=== PATIENT | male | born 1990 | race Caucasian/White ===

== ENCOUNTER 2017-06-14 06:05 | Day surgery (SDC) | payer BC ==
--- NOTE | 2017-06-13 14:24 | HP ---
DATE OF ADMISSION: 06/14/2017 HISTORY OF PRESENT ILLNESS: The patient is a 26-year-old male with a greater than 6-month history of pain and popping in his left knee. He has had no specific injury. He has difficulty stepping up. He has had persistent symptoms despite rest, restriction of activities, anti-inflammatory medications , and previous cortisone injection. He underwent a right knee arthroscopy in 2005 with some improvem ent, but continues to have problems. PAST MEDICAL HISTORY: The patient is otherwise in good health. CURRENT MEDICATIONS: Normally takes no routine medications. ALLERGIES: He has no known medical allergies. FAMILY HISTORY: Otherwise unremarkable. SOCIAL HISTORY: Otherwise unremarkable. REVIEW OF SYSTEMS: Otherwise unremarkable. PHYSICAL EXAMINATION: GENERAL: Reveals a healthy male. HEENT: Unremarkable. NECK: Supple. CHEST: Clear. HEART: Regular rate and rhythm. ABDOMEN: Soft, nontender. RECTAL/GENITAL: Deferred. EXTREMITIES: Pertinent findings are of the left knee. There is no effusion or erythema. There is n o significant swelling. There is normal alignment. There is no point tenderness. The patella was s ubluxable but nontender. There is full range of motion. Mild patellofemoral crepitus and mild pain with Jose's maneuver. There is no definite instability. Neurovascular exam is intact. LABORATORY AND X-RAY FINDINGS: X-rays of the left knee reveal slight degenerative changes in the pat ellofemoral joint. MRI scan of the left knee from 09/20/2016 reveals a degenerative signal posterior horn of the medial meniscus and a possible healing flap tear, and some degenerative changes of the l ateral patellar facet, and slight lateral subluxation of the patella, but the patella appears reduced on regular x-rays. IMPRESSION: Internal derangement, left knee; possible patellofemoral arthritis; possible meniscal te ar. PLAN: Arthroscopy with partial meniscectomy and/or debridement and shaving. The nature of the surge ry, length of recovery, and potential complications such as infection, loss of motion, incomplete rel ief, thromboembolic phenomenon, neurovascular injury, post-traumatic degenerative arthritis, recurren t tear and need for additional treatment or repeat surgery have been discussed in detail.
[2017-06-13 15:06] VITALS: BMI 21.6
[2017-06-14] MEDS ORDERED: Bupivacaine HCl 0.5%/Epinephrine 1:200,000/PF 30 ml Vial ONE (06:33)
[2017-06-14] MEDS ORDERED: Midazolam HCl 2 mg/2 ml Vial ONE (06:58)
[2017-06-14] MEDS ORDERED: CEFAZOLIN/Water 2 GM/20 ML SYRINGE ONE (06:58)
[2017-06-14] MEDS ORDERED: Fentanyl 100 MCG/2 ML VIAL ONE (07:15)
[2017-06-14] MEDS ORDERED: HYDROmorphone 0.5 MG/0.5 ML SYRINGE ONE (07:15)
--- NOTE | 2017-06-14 10:15 | OP ---
DATE OF PROCEDURE: 06/24/2017 SURGEON: Max Crhistianson M.D. ANESTHESIA: General. PREOPERATIVE DIAGNOSES: Internal derangement, left knee. POSTOPERATIVE DIAGNOSES: Chondromalacia patella and loose body, left knee. PROCEDURE: Arthroscopy left knee with shaving of patella and removal of loose body. OPERATIVE FINDINGS: Examination under anesthesia revealed the knee to be stable. At arthroscopy, th ere was a chondral defect and chondromalacia of the central and medial aspect of the patella down to, but not involving the subchondral bone. It measured approximately 1 x 1 cm. Examination of the med ial compartment was normal. The meniscus was normal. I could not see an injury or evidence of recur rent tear. ACL was intact. Lateral meniscus was intact. There was a cartilaginous loose body measu ring approximately 5 x 8 mm in the lateral compartment, primarily presenting itself underneath the la teral meniscus and the popliteus recess. This apparently was from the patellar defect. I could not see any other source of the loose body. NARRATIVE REPORT: After satisfactory anesthesia was induced, the patient was placed in supine positi on, the patient was placed in a leg ordoñez and prepped and draped in routine manner. Left leg was el evated, exsanguinated with an Esmarch bandage, and the tourniquet inflated to 250 mmHg. [place] arth roscope was introduced into the anterolateral portal, probe through an anteromedial portal, and inflo w and outflow accomplished through the scope using the [place] arthroscopy pump. Arthroscopy was car ried out and the above findings were noted here. All findings were documented with the video printer and hard copies were made. I attempted to remove the loose body with grasping forceps, but I could not quite reach it and therefore elected to remove this with suction of the motorized shaver. I appe ared to have removed it with a shaver, but this happened so fast I could not totally tell that it was suctioned with the motorized shaver. I diligently searched all compartments including the popliteus recess and above and below the lateral meniscus and in the intercondylar notch and I could not see e vidence of the loose body and presumably this was removed with the motorized shaver. The patellar ar ticular surface was debrided with use of basket forceps and motorized shaver of all loose fronds of a rticular surface and the crater smoothed and all segments of articular surface were probed and found to be stable. The scope was introduced anteromedial portal. All compartments visualized and no diann tional pathology found and no evidence of the loose body was seen. The knee was then copiously irrig ated through the scope and all instruments withdrawn. Twenty mL of 0.5% Marcaine was instilled into the knee joint and an additional 10 mL injected about the portal sites. The portal sites were closed with 3-0 nylon. A sterile bulky compressive dressing was applied and the tourniquet deflated after 37 minutes. The foot promptly pinked up. The patient was awakened, taken to recovery room in stable condition. There were no apparent intraoperative complications. The estimated blood loss was negli gible. The patient will be discharged home in satisfactory condition. He was instructed on ice, elevation, use of crutches, and home exercise program with Physical Therapy Department. He was given written wo und care instructions and prescription for [place] 7.5 for pain, 40 tablets. He will be rechecked in m y office in 10-14 days or sooner if there are any problems prior to that time.
[2017-06-14] MEDS ORDERED: Ketorolac Tromethamine 30 MG/ML VIAL ONE (13:07)
[2017-06-14] MEDS ORDERED: PROPOFOL 200 MG/20 ML VIAL ONE (13:07)
[2017-06-14] MEDS ORDERED: Dexamethasone 20 MG/5 ML VIAL ONE ×2 (13:07)
[2017-06-14] MEDS ORDERED: Lidocaine 1% PF 5 ML VIAL ONE (13:07)
[2017-06-14] MEDS ORDERED: Ondansetron HCl/PF 4 MG/2 ML Vial ONE (13:07)
== END 2017-06-14 11:10 | disposition home or self-care (01) ==
LOC: SDC 06:05
PROVIDERS: ATTEND Orthopaedic Surgery
PROC: 0SBD4ZZ Excision of Left Knee Joint, Percutaneous Endoscopic Approach (ICD-10-PCS; principal; 2017-06-14)
DX: M22.42 Chondromalacia patellae, left knee (principal); M23.42 Loose body in knee, left knee; Z79.899 Other long term (current) drug therapy; Z98.890 Other specified postprocedural states
CPT/HCPCS: G8978-GP-CI; G8979-GP-CI; G8980-GP-CI; J0670; J1100; J1170; J1885; J2001; J2250; J2405; J2704; J3010